=== PATIENT | male | born 1970 | race Two or more races ===

== ENCOUNTER 2025-08-12 17:23 | Emergency (ER) | payer BC, SELFPAY ==
[2025-08-12 18:03] VITALS: BP 170/110; PULSE 66; RESP 17; TEMP 36.7; O2SAT 98
--- NOTE | 2025-08-12 18:57 | PD.EDWOUND ---
ED Wound/Laceration-RME/HPI General Chief Complaint: Wound/Laceration Stated Complaint: FINGER LAC Time Seen by Provider: 08/12/25 18:57 Arrival date/time: 08/12/25 17:23 RME / HPI RME / HPI narrative: 55-year-old male patient came in for evaluation regarding left ring finger tip laceration. Onset of symptoms earlier this morning's patient was working with airduct and accidentally cut himself sustaining 0.5 cm laceration to the tip of the finger no active bleeding noted at this time patient vaccination is unknown. Related Data Home Medications ?Medication ?Instructions ?Recorded ?Confirmed Cetirizine * (ZYRTEC *) 10 mg PO QDAY #0 tabs 08/17/14 sertraline 100 mg tablet (Zoloft) 2 tab PO QDAY #0 tabs 08/17/14 Allergies Allergy/AdvReac Type Severity Reaction Status Date / Time No Known Allergies Allergy Verified 08/12/25 17:25 Review of Systems Review of Systems Narrative Review of Systems: Review of system reviewed and within normal limits except mentioned in HPI ED Exam Narrative Physical exam: VITAL SIGNS: Reviewed. GENERAL APPEARANCE: Alert and interactive, follows commands, no acute distress, HEAD AND FACE: Non-traumatic. ENT: PERRL, pink conjunctivitis, eyelid no trauma, Mucous membrane moist. NECK: Supple, nontender, no nuchal rigidity. RECTAL: Deferred. GENITAL: Deferred. NEUROLOGICAL: Gross motor function intact sensory function intact, Appropriate for age. MUSCULOSKELETAL: low back nontender, full range of motion. EXTREMITIES: +0.5 cm left ring finger tip laceration nongaping, full range of motion. SKIN: Color pink, dry, no rash, no lacerations, no abrasions, no contusions. LYMPHATICS: Deferred. Course Quality Measures none Orders Category Date Time Status TET,DIP/PERT AC (Adult)-Tdap [Boostrix Adult (Tdap) Med 08/12/25 18:57 Once Vacc] 0.5 ml IMI .ONCE ONE Vital Signs Vital signs: Vital Signs Temperature 98.0 F 08/12/25 18:03 Pulse Rate 66 08/12/25 18:03 Respiratory Rate 17 08/12/25 18:03 Blood Pressure 170/110 H 08/12/25 18:03 Pulse Oximetry (%) 98 08/12/25 18:03 Oxygen Delivery Method Room Air 08/12/25 18:03 Wound / Laceration MDM Narrative MDM Narrative:: 55-year-old male patient came in for evaluation regarding left ring finger tip laceration. Onset of symptoms earlier this morning's patient was working with airduct and accidentally cut himself sustaining 0.5 cm laceration to the tip of the finger no active bleeding noted at this time patient vaccination is unknown. Repair and suturing is not needed at this time. Patient received Boostrix. Dressing applied. Stable for discharge home Patient data External records reviewed:: None Clinical information provided by:: patient Social determinants that could affect healthcare access:: none (None) Patient has the following chronic illnesses:: None How is presenting disease/condition affected by chronic disease/condition?: exacerbated by Evaluation data The following diagnostics were reviewed and interpreted by me:: other (specify) (None) Lab and/or radiology exams considered but not ordered:: None none Interpretation Summary: None Medications / Prescriptions Medications or Prescriptions considered but not ordered:: None Medication administrations:: Medication Administration History Diphtheria/Tetanus/Acell Pertussis (Diphth,Pertuss(Acell),Tet Vac 0.5 Ml Syr- Adult) 0.5 ml IMi .ONCE ONE Stop: 08/12/25 18:58 Boostrix Consultations Consultation(s) initiated? (list below): No Diagnosis Wound Differential Diagnosis: laceration, abrasion and avulsion of skin Most likely diagnosis given after review of the tests above:: Finger laceration Admission Indicated Admission indicated?: not indicated Explain why admission is indicated or not indicated:: Stable Admission Request Was there a request for admission?: No Disposition Plan Disposition Plan: Discharge Discharge Attestation Discharge Attestation: The patient was given an opportunity to ask questions and understood the discharge instructions. Discharge instructions specifically effects, indications for sooner follow up or return to the emergency department, and the expected course of current diagnosis. Patient condition: Stable Discharge Plan Plan Patient Disposition: HOME (Self Care) Discharge Disposition comment: Stable Prescriptions/Referrals Prescriptions/Med Rec: No Action sertraline [Zoloft] 100 MG tablet 2 tab PO QDAY Qty: 0 Cetirizine * (ZYRTEC *) 10 MG tablet 10 mg PO QDAY Qty: 0 Problem List Clinical Impression: Finger laceration Patient/Caregiver Discharge Instructions Discharge Activity: activity as tolerated Education Materials: ED Laceration Small or ... Additional Instructions: Thank you for the opportunity for serving you today. You are stable for discharged . You are advised to: Follow-up with your PCP in 1 to 2 days Return to ED for worsening of symptoms Increase oral fluids Do not get your laceration wet for the next 3 days You may change the dressing every day with bacitracin Print Language: Jordanian Stand Alone Forms: Manuela Award Info., Patient Portal Info Letter PA/ATIYA Supervising Physician AZAR/ATIYA Supervising Physician: MD Sal
[2025-08-12] MEDS: DIPHTH,PERTUSS(ACELL),TET VAC 0.5 ML SYR- ADULT IMi (19:09)
== END 2025-08-12 19:13 | disposition home or self-care (01) ==
LOC: SERX 19:17
PROVIDERS: Emergency Provider Emergency Medicine; PCP Family Medicine
DX: S61.215A Laceration without foreign body of left ring finger without damage to nail, initial encounter (principal); W45.8XXA Other foreign body or object entering through skin, initial encounter; Y93.89 Activity, other specified; Z23 Encounter for immunization
CPT/HCPCS: 90471; 90715; 99281